=== PATIENT | female | born 1950 | race Caucasian/White ===

== ENCOUNTER 2020-08-02 12:08 | Emergency (ER) | payer MEDICARE, OTHER ==
[~2020-08-02] VITALS: Ht 160 cm; Wt 64.0 kg
--- NOTE | 2020-08-02 12:14 | NUR ---
LIZ RA 860 FROM HOME, STATES "Started having Loose Red Blood in stool last night", TO ER BED 10, PATIENT MENTIONED HAD A BOWEL MOVEMENT THIS MORNING BUT DID NOT MENTION HAVING BLOODY STOOL, ALSO MENTIONED ABDOMINAL DISCOMFORT, HOOKED TO MONITOR, CHANGED TO HOSP GOWN, WARM BLANKET PROVIDED, PATIENT AAO x 3, BREATHING EVEN AND UNLABORED, AWAITING MD WILLIS
--- NOTE | 2020-08-02 12:25 | NUR ---
DR CHIU AT BEDSIDE
[2020-08-02 13:20] LABS: BASOPHILS # (AUTO) 0.1 /CMM (0.0-0.2); BASOPHILS % (AUTO) 0.3 % (0.0-2.0); EOSINOPHILS % (AUTO) 0.1 % (0.0-6.0); HEMATOCRIT 43 % (33-45); HEMOGLOBIN 14.2 g/dL (11.5-14.8); LYMPHOCYTES # (AUTO) 1.1 /CMM (0.8-4.8); LYMPHOCYTES % (AUTO) 5.5 % (20.0-44.0); MEAN CORPUSCULAR HGB CONC 33 g/dl (31.0-36.0); MEAN CORPUSCULAR VOLUME 94 fL (82-100); MONOCYTES # (AUTO) 0.6 /CMM (0.1-1.30); MONOCYTES % (AUTO) 3.1 % (2.0-12.0); PLATELET COUNT (AUTO) 267 /CMM (150-450); RED BLOOD CELL COUNT(AUTO) 4.55 MIL/uL (4.0-5.2); WHITE BLOOD COUNT (AUTO) 19.8 K/uL (4.3-11.0)
[2020-08-02 13:24] LABS: CALCIUM, SERUM 9.8 mg/dL (8.5-10.1); CREATININE 0.8 mg/dL (0.6-1.3); POTASSIUM 4.4 mmol/L (3.5-5.1)
[2020-08-02 13:34] LABS: ALBUMIN 3.7 g/dL (3.4-5.0); BILIRUBIN,DIRECT 0.2 mg/dL (0.0-0.2); BILIRUBIN,TOTAL 0.6 mg/dL (0.2-1.0); TOTAL PROTEIN, SERUM 7.4 g/dL (6.4-8.2)
[2020-08-02] MEDS ORDERED: IOHEXOL-300 100 ML VIAL IV ONE (13:48)
[2020-08-02] MEDS ORDERED: IV NS 0.9% 250 ML IV ONE (13:49)
--- NOTE | 2020-08-02 15:20 | NUR ---
Spoke to family Dannie [phone]
--- NOTE | 2020-08-02 15:51 | NUR ---
IV removed. Catheter intact and site benign. Pressure and 4x4 applied to site. No bleeding noted. Patient discharged to home in stable condition. Written and verbal after care instructions given. Patient verbalizes understanding of instruction. Assisted patient via wheelchair to waiting room. Daughter picked up patient.
[2020-08-02 15:54] VITALS: BP 134/70
== END 2020-08-02 15:54 | disposition home or self-care (01) ==
LOC: ER 12:20
DX: K52.9 Noninfective gastroenteritis and colitis, unspecified (principal); Z86.73 Personal history of transient ischemic attack (TIA), and cerebral infarction without residual deficits
CPT/HCPCS: 36415; 74177; 80048; 80076; 83690; 85025; 85730; 99285; J7050; Q9967